=== PATIENT | male | born 1985 | race Caucasian/White ===

== ENCOUNTER → 2021-02-26 09:19 | Outpatient (CLI) | payer SELFPAY | PROVIDERS: Visit Provider Physician Assistant | DX: R31.9 Hematuria, unspecified (principal) | CPT/HCPCS: 87086 ==

== ENCOUNTER 2021-04-02 18:32 | Emergency (ER) | payer SELFPAY ==
[2021-04-02] VITALS (8 sets, daily range): BP systolic 120–159; BP diastolic 67–103; PULSE 67–79; RESP 14–22; TEMP 36.8; O2SAT 99
--- NOTE | 2021-04-02 19:17 | DI.RAD.S_ITS ---
PROCEDURE: XR ACUTE ABDOMEN SERIES INDICATIONS: dizziness, ? syncope, hematuria TECHNIQUE: One view chest and two views of the abdomen were acquired. COMPARISON: None. FINDINGS: Surgical changes and devices: None. Chest: There is a density overlying the right anterior 1st rib. This may be related to bone, or may be a pulmonary parenchymal nodular density. Lungs are clear. Heart size is normal. No pleural effusions. No pneumoperitoneum. Abdomen: Large fecal load. Bowel gas pattern is normal. No suspicious calcifications. Visualized solid organ contours appear normal. Bones: No suspicious bony lesions. IMPRESSION: 1. Question benign lesion of the right anterior 1st rib versus pulmonary nodule. Recommend CT chest. 2. Large fecal load. 3. No evidence of acute process in the chest or abdomen. Dictated by: Aniceto Covington M.D. on 04/02/2021 at 20:05 Approved by: Aniceto Covington M.D. on 04/02/2021 at 20:06
--- NOTE | 2021-04-02 19:17 | ED_ITS ---
HPI - Syncope General Chief Complaint: Syncope Stated Complaint: Passing Out, Abscess in Teeth Time Seen by Provider: 04/02/21 19:17 Source: patient Mode of arrival: Ambulatory Limitations: no limitations History of Present Illness HPI narrative: This is a 35-year-old male who denies any regular medical issues. Patient states he has had episodes over the last month where he feels lightheaded like he is going to pass out he has had 2 or 3 episodes where he feels like he almost passes out or if he does for 2 or 3 seconds. He states he is always cerumen seated his head sort of bobs forward and then comes back up. He has not had any falls associated with these episodes. He does occasionally have a sense of headache when it occurs but does not describe it as severe. Today he sort of jaw discomfort in that area. He states occasionally he will have a sensation of chest pressure or shortness of breath. He has occasionally had nausea. He has also noted he has had some hematuria but attributes this to kidney stones which have been present for about a month. He has had some bilateral flank pain. He has noted some dysuria recently. He states he has been stooling regularly with no black or bloody stools. He denies any fevers. He denies any cough cold or congestion. No vision changes. No numbness, tingling or weakness. Patient states he does not have any significant cardiac, pulmonary embolic family history. Patient states he thought he may have an abscess in his teeth because some fillings fell out but he does not have pain, swelling or other changes. Patient states he did take a Suboxone from a friend at 1 point. He states that he does have a prior history of addiction to pain pills but does not use them regularly. He denies other medical issues. He denies prior surgeries. He denies allergies to medications other than penicillin. Patient lives on [facility]. He came today because he had sort of a twitchy muscle sensation. Related Data Home Medications Medication Instructions Recorded Confirmed loratadine [Claritin] PO 03/28/21 03/28/21 Allergies Allergy/AdvReac Type Severity Reaction Status Date / Time Penicillins Allergy Intermediate Hives Verified 04/02/21 19:16 seaonal Allergy Mild unknown Uncoded 03/28/21 13:59 Review of Systems Review of Systems ROS Unobtainable: All systems reviewed & are unremarkable except as noted in HPI and below Patient History Social History Smoking Status: Former smoker Smoking Status: Former smoker alcohol intake frequency: a few times a week Substance Use Type: marijuana Exam Narrative Exam Narrative: GEN: well nourished, well appearing male, alert and oriented x 3, patient appears to be in mild distress. HEENT: Atraumatic, pupils are equal round reactive to light, extraocular movements are intact, nares are clear, TMs are clear with no fluid, there is no conjunctival pallor. Throat is clear without any exudates, erythema, tonsillar enlargement or uvular deviation, no erythema, swelling or signs of infection of the dentition. HEART: Regular rate and rhythm without murmur, clicks, rubs. No carotid bruits, pulses are equal in upper and lower extremities LUNGS:Lungs clear to auscultation, no wheezes, rales, crackles, chest moves symmetrically ABD:bowel sounds normal, soft, non-tender, no guarding, rebound, rigidity, no masses noted, no hepatosplenomegaly :No CVA tenderness MSCL: Non-tender, no muscle atrophy, muscles strength 5/5 upper and lower extremities, full range of motion, normal gait NEURO:CN 2-12 intact, sensation normal SKIN: No rash, erythema or skin changes. Initial Vital Signs Initial Vital Signs: Vital Signs Temperature 98.3 F 04/02/21 19:12 Pulse Rate 71 04/02/21 19:12 Respiratory Rate 16 04/02/21 19:12 Blood Pressure 159/87 H 04/02/21 19:12 Pulse Oximetry 99 04/02/21 19:12 Course Orders Ordered: Discontinued Medications Sodium Chloride (Normal Saline 0.9%) 1,000 mls @ 1,000 mls/hr IV BOLUS ONE Stop: 04/02/21 20:16 Last Infusion: 04/02/21 20:35 Dose: 0 mls/hr Documented by: Admin: 04/02/21 19:37 Dose: 1,000 mls/hr Documented by: STACY Vital Signs Vital signs: Vital Signs - 8 hr 04/02/21 19:12 Temperature 98.3 F Pulse Rate 71 Respiratory Rate 16 Blood Pressure 159/87 H Pulse Oximetry 99 MDM - Syncope Lab Data Result diagrams: 04/02/21 19:19 04/02/21 19:19 Labs: Lab Results 04/02/21 04/02/21 04/02/21 Range/Units 19:19 19:19 19:19 WBC 7.1 (4.5-11.0) X10^3/uL RBC 4.48 L (4.5-5.9) X10^6/uL Hgb 14.5 (13.5-17.5) g/dL Hct 43.3 (41-53) % MCV 96.6 (80-100) fL MCH 32.5 (26-34) PG MCHC 33.6 (30-36) % RDW 12.0 (11.6-14.8) % Plt Count 227 (150-400) X10^3/uL Neut % (Auto) 66.6 (50-75) % Lymph % (Auto) 20.3 L (25-40) % [place] % (Auto) 10.3 (3-14) % Eos % (Auto) 2.3 (2-4) % Baso % (Auto) 0.5 (0-2) % Neut # (Auto) 4700 (0066-3973) /uL Lymph # (Auto) 1400 (3647-4358) /uL [place] # (Auto) 700 (0-900) /uL Eos # (Auto) 200 (0-450) /uL Baso # (Auto) 0 (0-100) /uL D-Dimer < 200 (<230) ng/mL Sodium 137 (137-145) mmol/L Potassium 3.9 (3.4-5.1) mmol/L Chloride 99 (98-107) mmol/L Carbon Dioxide 32 (22-32) mmol/L BUN 15 (9-20) mg/dL Creatinine 0.77 (0.66-1.25) mg/dL Estimated GFR > 60.0 (>60) mL/min BUN/Creatinine Ratio 19.5 (6-22) Glucose 108 H (70-100) mg/dL Calcium 9.5 (8.4-10.2) mg/dL Magnesium 2.1 (1.6-2.3) mg/dL Total Bilirubin 0.4 (0.2-1.3) mg/dL AST 31 (17-59) IU/L ALT 20 (<50) IU/L Alkaline Phosphatase 39 (38-126) U/L Total Creatine Kinase 95 (55-170) U/L CK-MB (CK-2) TNP CK-MB (CK-2) Rel Index TNP Troponin I < 0.012 (0.01-0.034) ng/mL NT-Pro-B Natriuret Pep 24 (<125) pg/mL Total Protein 8.4 H (6.3-8.2) g/dL Albumin 4.8 (3.5-5.0) g/dL Globulin 3.6 (1.7-4.1) g/dL Albumin/Globulin Ratio 1.3 (1.0-2.8) Lipase 49 (23-300) U/L Urine Dip Bedside Urine Glucose Negative Bedside Urine Bilirubin - Negative Bedside Urine Ketone - Negative Urine Specific [place] 1.010 Bedside Urine Occult Blood - Negative Bedside Urine pH 6.0 Bedside Urine Protein - Negative Bedside Urine Urobilinogen - Negative Bedside Urine Nitrite - Negative Bedside Urine Leukocytes - Negative Esterase Imaging Data CT scan - head: Radiologist's Impression: [place] [address] CT Scan Report Signed Patient: Tate Weiss MR#: [id number] : 1985 Acct:[id number] Age/Sex: 35 / M Date of Service: 04/02/21 Loc: ED Accession Number: [id number] ?? Procedure: CT head/brain wo con Ordering Provider: Linda Beach D.O. PROCEDURE:? CT HEAD/BRAIN WO CON ? INDICATIONS:? dizziness/? syncope ? TECHNIQUE:? Noncontrast 4.5 mm thick angled axial sections acquired from the foramen magnum to the vertex, with coronal and sagittal reformats.? For radiation dose reduction, the following was used:? automated exposure control, adjustment of mA and/or kV according to patient size.? ? COMPARISON:? None. ? FINDINGS:? Image quality:? Excellent.? ? CSF spaces:? Basal cisterns are patent.? No extra-axial fluid collections.? Ventricles are normal in size and shape.? ? Brain:? No midline shift.? No intracranial masses or hemorrhage.? Martinez-white matter interface is normal.? ? Skull and face:? Calvarium and visualized facial bones are intact, without suspicious lesions.? ? Sinuses:? Visualized sinuses and mastoids are clear.? ? IMPRESSION:? No evidence acute stroke, hemorrhage, or mass. ? ? Dictated by: Aniceto Covington M.D. on 04/02/2021 at 19:48 ? ? Approved by: Aniceto Covington M.D. on 04/02/2021 at 19:48?? acute abd series: Radiologist's Impression: [address] [address] XRay Report Signed Patient: Tate Weiss MR#: [id number] : 1985 Acct:[id number] Age/Sex: 35 / M Date of Service: 04/02/21 Loc: ED Accession Number: [id number] ?? Procedure: XR acute abdomen series Ordering Provider: Linda Beach D.O. PROCEDURE:? XR ACUTE ABDOMEN SERIES ? INDICATIONS:? dizziness, ? syncope, hematuria ? TECHNIQUE:? One view chest and two views of the abdomen were acquired.? ? COMPARISON:? None. ? FINDINGS:? ? Surgical changes and devices:? None.? ? Chest:? There is a density overlying the right anterior 1st rib.? This may be related to bone, or may be a pulmonary parenchymal nodular density.? Lungs are clear.? Heart size is normal.? No pleural effusions.? No pneumoperitoneum.? ? Abdomen:? Large fecal load.? Bowel gas pattern is normal.? No suspicious calcifi cations.? Visualized solid organ contours appear normal.? ? Bones:? No suspicious bony lesions.? ? IMPRESSION:? 1. Question benign lesion of the right anterior 1st rib versus pulmonary nodule.? Recommend CT chest. 2. Large fecal load. 3. No evidence of acute process in the chest or abdomen. ? ? Dictated by: Aniceto Covington M.D. on 04/02/2021 at 20:05 ? ? Approved by: Aniceto Covington M.D. on 04/02/2021 at 20:06?? ECG Data Attestation: I personally reviewed and interpreted this ECG as follows: Prior ECG tracings: not available for review Interpretation: Sinus rhythm rate of 68 P 138 QRS 88 QTC [address]. No acute ST elevation RSR in V1 V2. No prior for comparison. MDM Narrative Medical decision making narrative: Male comes in with episodes of near syncope or a few seconds which always seem to occur her well-seated. Patient states he has had will drop down. He does not have any obvious cardiac, pulmonary a bowel causes. He has not any cardiac arrhythmias in the department. Head CT, chest x-ray and lab work otherwise reassuring patient has been told that he has kidney stones. Patient does not have any hematuria today. At this time his exam and findings are reassuring he was recommended to follow-up with primary care for recheck. Discharge Plan Departure Patient Disposition: Home Clinical Impression: Intermittent lightheadedness Instructions: DI for Syncope in Adults (Fainting) Activity Restrictions/Additional Instructions: Follow-up with primary care for recheck. I would recommend talking to them about possibly obtaining a Holter monitor your labs, imaging and EKG today do not show any cardiac causes of her symptoms but would be appropriate to have this further workup. It is noted on your CT scan that you have either a pulmonary nodule or change to the bone of the 1st rib on the right. It is recommended that you have a CT of your chest in the future to more fully evaluate this. This does not seem like a likely cause of your symptoms. Return for fevers, severe headaches, passing out that is recurrent, chest pain, shortness of breath, persistent vomiting, black or bloody stools or other new or concerning symptoms. Prescriptions: No Action loratadine [Claritin] PO RF: 0 Referrals: Miscellaneous,DoctorMD [Primary Care Provider] -
--- NOTE | 2021-04-02 19:18 | DI.CT.S_ITS ---
PROCEDURE: CT HEAD/BRAIN WO CON INDICATIONS: dizziness/? syncope TECHNIQUE: Noncontrast 4.5 mm thick angled axial sections acquired from the foramen magnum to the vertex, with coronal and sagittal reformats. For radiation dose reduction, the following was used: automated exposure control, adjustment of mA and/or kV according to patient size. COMPARISON: None. FINDINGS: Image quality: Excellent. CSF spaces: Basal cisterns are patent. No extra-axial fluid collections. Ventricles are normal in size and shape. Brain: No midline shift. No intracranial masses or hemorrhage. Martinez-white matter interface is normal. Skull and face: Calvarium and visualized facial bones are intact, without suspicious lesions. Sinuses: Visualized sinuses and mastoids are clear. IMPRESSION: No evidence acute stroke, hemorrhage, or mass. Dictated by: Aniceto Covington M.D. on 04/02/2021 at 19:48 Approved by: Aniceto Covington M.D. on 04/02/2021 at 19:48
[2021-04-02 19:31] LABS: Add Manual Diff / Slide Review NO; Basophils Absolute Auto 0 /uL (0-100); Basophils Percent Auto 0.5 % (0-2); Eosinophils Absolute Auto 200 /uL (0-450); Eosinophils Percent Auto 2.3 % (2-4); Hematocrit 43.3 % (41-53); Hemoglobin 14.5 g/dL (13.5-17.5); Lymphocytes Absolute Auto 1400 /uL (1100-4500); Lymphocytes Percent Auto 20.3 % (25-40); Mean Corpuscular HGB Conc 33.6 % (30-36); Mean Corpuscular Hemoglobin 32.5 PG (26-34); Mean Corpuscular Volume 96.6 fL (80-100); Monocytes Absolute Auto 700 /uL (0-900); Monocytes Percent Auto 10.3 % (3-14); Neutrophils Absolute Auto 4700 /uL (1500-7000); Neutrophils Percent Auto 66.6 % (50-75); Platelet Count 227 X10^3/uL (150-400); Red Blood Cell Count 4.48 X10^6/uL (4.5-5.9); White Blood Cell Count 7.1 X10^3/uL (4.5-11.0)
[2021-04-02] MEDS: SODIUM CHLORIDE 0.9% 1,000 ML 1000 ML IV (19:37)
[2021-04-02 19:44] LABS: Alanine Aminotransferase 20 IU/L (<50); Albumin 4.8 g/dL (3.5-5.0); Albumin Globulin Ratio 1.3 (1.0-2.8); Alkaline Phosphatase 39 U/L (38-126); Aspartate Aminotransferase 31 IU/L (17-59); BUN Creatinine Ratio 19.5 (6-22); Bilirubin Total 0.4 mg/dL (0.2-1.3); Blood Urea Nitrogen 15 mg/dL (9-20); Calcium 9.5 mg/dL (8.4-10.2); Carbon Dioxide 32 mmol/L (22-32); Chloride 99 mmol/L (98-107); Creatine Kinase 95 U/L (55-170); D Dimer < 200 ng/mL (<230); Estimated Glomerular Filt Rate > 60.0 mL/min (>60); Globulin 3.6 g/dL (1.7-4.1); Glucose 108 mg/dL (70-100); HEMOLYSIS < 15 (0-50); Lipase 49 U/L (23-300); Magnesium 2.1 mg/dL (1.6-2.3); Potassium 3.9 mmol/L (3.4-5.1); Sodium 137 mmol/L (137-145); Total Protein 8.4 g/dL (6.3-8.2)
[2021-04-02 19:56] LABS: NT-proBNP (BNP-Adult 18+) 24 pg/mL (<125); Troponin I < 0.012 ng/mL (0.01-0.034)
== END 2021-04-02 20:38 | disposition home or self-care (01) ==
PROVIDERS: Emergency Provider Emergency Medicine
DX: R42 Dizziness and giddiness (principal); R55 Syncope and collapse; R07.9 Chest pain, unspecified; R06.02 Shortness of breath; R30.0 Dysuria; R10.9 Unspecified abdominal pain; R31.9 Hematuria, unspecified; N20.0 Calculus of kidney
CPT/HCPCS: 36415; 70450; 74022; 80053; 81003; 82550; 83690; 83735; 83880; 84484; 85025; 85379; 93005; 96360; 99284